=== PATIENT | female | born 1930 | race Caucasian/White ===

== ENCOUNTER 2017-03-10 15:25 | Emergency (ER) | payer OTHER ==
--- NOTE | 2017-03-10 15:34 | PDOC ---
History of Present Illness - General History Source: Patient Exam Limitations: No Limitations - History of Present Illness Initial Comments: 03/10/17 17:02 Patient is a 86 year old female,from [facility], with a significant past medical history of Dementia, pacemaker placement, ASHD, angina, and hypercholesterolemia, anxiety, who presents to the ED s/p fall that occurred 2 hours before ED arrival. Patient reports tripping while at the nursing and landing on her buttocks. She reports the pain is a localized pain that she does not rate but states it is painful to sit. Patient denies hitting her head and loss of consciousness. CATIA DESIGNER staff with staff reports they were not in the room so cannot verify or deny the patient's answers. Denies chest pain, sob. Denies fever, chills. Denies hitting of head, loss of consciousness. Denies any other symptoms. Allergies: None Social history: No smoking. No alcohol. No illicit drugs. Surgical history: none PMD: None <Renny Dugan - Last Filed: 03/10/17 17:02> <Dallas Walden - Last Filed: 03/10/17 18:45> - General Chief Complaint: Injury Stated Complaint: FALL Past History <Renny Dugan - Last Filed: 03/10/17 17:02> - Past Medical History Cardiac Disorders: Yes (PACE MAKER, ASHD, angina) GI Disorders: Yes (ABD HERNIA) Hypercholesterolemia: Yes Psychiatric Problems: Yes (ANXIETY) - Surgical History Cardiac Surgery: Yes (PACE MAKER) - Immunization History Td Vaccination: Yes (05/21) Immunization Up to Date: Yes - Suicide/Smoking/Psychosocial Hx Smoking Status: No Smoking History: Unknown if ever smoked Number of Cigarettes Smoked Daily: 0 Hx Alcohol Use: No Substance Use Type: None <Dallas Walden - Last Filed: 03/10/17 18:45> - Past Medical History Allergies/Adverse Reactions: Allergies Allergy/AdvReac Type Severity Reaction Status Date / Time No Known Allergies Allergy Verified 03/10/17 15:45 Home Medications: Ambulatory Orders Alendronate Na [Fosamax] 70 mg PO Q7D 10/16/11 Atorvastatin Ca [Lipitor (Restricted To Cardiology)] 10 mg PO DAILY 10/16/11 Cholecalciferol (Vitamin D3) [Vitamin D] 2,000 unit PO BID 10/16/11 Diltiazem HCl [Cardizem] 120 mg PO BID 10/16/11 Escitalopram Oxalate [Lexapro] 10 mg PO HS 10/16/11 Levetiracetam [Keppra] 250 mg PO BID 10/16/11 Ranitidine Oral Solution [Zantac] 150 mg PO DAILY 10/16/11 Aspirin [ASA] 81 mg PO DAILY 01/03/12 Docusate Sodium [Colace] 100 mg PO TID 01/03/12 Digoxin [Lanoxin] 125 mcg PO DAILY 11/10/14 Metformin HCl [Glucophage -] 500 mg PO BID 11/10/14 Review of Systems - Review of Systems Able to Perform ROS?: Yes Comments:: 03/10/17 17:02 GENERAL/CONSTITUTIONAL: No fever or chills. No weakness. HEAD, EYES, EARS, NOSE AND THROAT: No change in vision. No ear pain or discharge. No sore throat. CARDIOVASCULAR: No chest pain or shortness of breath. RESPIRATORY: No cough, wheezing, or hemoptysis. GASTROINTESTINAL: No nausea, vomiting, diarrhea or constipation. GENITOURINARY: No dysuria, frequency, or change in urination. MUSCULOSKELETAL: +RIght buttock pain. No joint or muscle swelling or pain. No neck or back pain. SKIN: No rash NEUROLOGIC: No headache, vertigo, loss of consciousness, or change in strength/ sensation. ENDOCRINE: No increased thirst. No abnormal weight change. HEMATOLOGIC/LYMPHATIC: No anemia, easy bleeding, or history of blood clots. ALLERGIC/IMMUNOLOGIC: No hives or skin allergy. All Other Systems: Reviewed and Negative <Renny Dugan - Last Filed: 03/10/17 17:02> *Physical Exam - Vital Signs Last Vital Signs Temp Pulse Resp BP Pulse Ox 98.1 F 61 18 122/71 100 03/10/17 15:32 03/10/17 15:32 03/10/17 15:32 03/10/17 15:32 03/10/17 15:32 - Physical Exam Comments: 03/10/17 17:03 GENERAL: Awake, alert, and fully oriented, in no acute distress HEAD: No signs of trauma EYES: PERRLA, EOMI, sclera anicteric, conjunctiva clear ENT: Auricles normal inspection, hearing grossly normal, nares patent, oropharynx clear without exudates. Moist mucosa NECK: Normal ROM, supple, no lymphadenopathy, JVD, or masses LUNGS: Breath sounds equal, clear to auscultation bilaterally. No wheezes, and no crackles HEART: Regular rate and rhythm, normal S1 and S2, no murmurs, rubs or gallops ABDOMEN: Soft, nontender, normoactive bowel sounds. No guarding, no rebound. No masses BUTTOCK: +Lateral buttock tenderness. EXTREMITIES: Normal range of motion, no edema. No clubbing or cyanosis. No cords, erythema, or tenderness NEUROLOGICAL: Cranial nerves II through XII grossly intact. Normal speech, normal gait SKIN: Warm, Dry, normal turgor, no rashes or lesions noted. <Renny Dugan - Last Filed: 03/10/17 17:02> ED Treatment Course - Medications Given in the ED: ED Medications Discontinued Medications Generic Name Dose Route Start Last Admin Trade Name Freq PRN Reason Stop Dose Admin Acetaminophen 1,000 mg 03/10/17 16:15 03/10/17 16:45 Tylenol - PO 03/10/17 16:16 1,000 mg ONCE ONE Administration <Renny Dugan - Last Filed: 03/10/17 17:02> *DC/Admit/Observation/Transfer - Attestations Scribe Attestion: 03/10/17 17:03 Documentation prepared by Renny Dugan, acting as director of graduate medical education for Dallas Walden MD/DO. <Renny Dugan - Last Filed: 03/10/17 17:02> - Discharge Dispostion Admit: No - Attestations Physician Attestion: 03/10/17 15:34 I, Dr. Dallas Walden, attest that this document has been prepared under my direction and personally reviewed by me in its entirety. I further attest, that it accurately reflects all work, treatment, procedures and medical decision -making performed by me. <Dallas Walden - Last Filed: 03/10/17 18:45> Diagnosis at time of Disposition: Contusion of buttock Qualifiers: Encounter type: initial encounter Qualified Code(s): S30.0XXA - Contusion of lower back and pelvis, initial encounter - Discharge Dispostion Disposition: HOME Condition at time of disposition: Good - Patient Instructions Printed Discharge Instructions: DI for Contusion Additional Instructions: Angely- Sorry this happened to you..... Nothing is broken... You will be sore for a few days... Use tylenol and an Ice Pack Shakeel- Dallas Orantes
--- NOTE | 2017-03-10 15:35 | PDOC ---
History of Present Illness - General Chief Complaint: Injury Stated Complaint: FALL Time Seen by Provider: 03/10/17 15:34 Past History - Past Medical History Allergies/Adverse Reactions: Allergies Allergy/AdvReac Type Severity Reaction Status Date / Time No Known Allergies Allergy Verified 10/16/11 11:53 Home Medications: Ambulatory Orders Alendronate Na [Fosamax] 70 mg PO Q7D 10/16/11 Atorvastatin Ca [Lipitor (Restricted To Cardiology)] 10 mg PO DAILY 10/16/11 Cholecalciferol (Vitamin D3) [Vitamin D] 2,000 unit PO BID 10/16/11 Diltiazem HCl [Cardizem] 120 mg PO BID 10/16/11 Escitalopram Oxalate [Lexapro] 10 mg PO HS 10/16/11 Levetiracetam [Keppra] 250 mg PO BID 10/16/11 Ranitidine Oral Solution [Zantac] 150 mg PO DAILY 10/16/11 Aspirin [ASA] 81 mg PO DAILY 01/03/12 Docusate Sodium [Colace] 100 mg PO TID 01/03/12 Digoxin [Lanoxin] 125 mcg PO DAILY 11/10/14 Metformin HCl [Glucophage -] 500 mg PO BID 11/10/14 Cardiac Disorders: Yes (PACE MAKER, ASHD, angina) GI Disorders: Yes (ABD HERNIA) Hypercholesterolemia: Yes Psychiatric Problems: Yes (ANXIETY) - Surgical History Cardiac Surgery: Yes (PACE MAKER) - Immunization History Td Vaccination: Yes (05/21) Immunization Up to Date: Yes - Suicide/Smoking/Psychosocial Hx Smoking Status: No Smoking History: Unknown if ever smoked Number of Cigarettes Smoked Daily: 0 Hx Alcohol Use: No Substance Use Type: None
[2017-03-10 15:43] VITALS: BP 122/71; PULSE 61; TEMP 98.1; BMI 27.4
[2017-03-10] MEDS ORDERED: ACETAMINOPHEN 500 MG TABLET (FP) PO ONE (16:15)
[2017-03-10] MEDS ORDERED: ACETAMINOPHEN 325 MG TABLET (FP) ONE (16:34)
== END 2017-03-10 19:29 | disposition home or self-care (01) ==
LOC: JER 15:25
DX: S30.0XXA Contusion of lower back and pelvis, initial encounter (principal); W18.39XA Other fall on same level, initial encounter; Y93.89 Activity, other specified; Y92.128 Other place in nursing home as the place of occurrence of the external cause; Y99.8 Other external cause status; I25.119 Atherosclerotic heart disease of native coronary artery with unspecified angina pectoris; I10 Essential (primary) hypertension; Z95.0 Presence of cardiac pacemaker; E78.00 Pure hypercholesterolemia, unspecified; E11.9 Type 2 diabetes mellitus without complications; Z79.84 Long term (current) use of oral hypoglycemic drugs; F41.9 Anxiety disorder, unspecified
CPT/HCPCS: 72170-TC; 99281-25

== ENCOUNTER 2017-07-30 11:31 | Emergency (ER) | payer OTHER ==
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
[2017-07-30 11:55] VITALS: BP 107/52; PULSE 60; TEMP 97.6; BMI 24.0
[2017-07-30] MEDS ORDERED: ACETAMINOPHEN 325 MG TABLET (FP) PO ONE (12:02)
[2017-07-30] MEDS ORDERED: ACETAMINOPHEN 325 MG TABLET (FP) ONE (12:08)
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
== END 2017-07-30 14:00 ==
LOC: JER 11:31
DX: S79.911A Unspecified injury of right hip, initial encounter (principal); W03.XXXA Other fall on same level due to collision with another person, initial encounter; Y93.89 Activity, other specified; Y92.128 Other place in nursing home as the place of occurrence of the external cause; Y99.8 Other external cause status; I25.119 Atherosclerotic heart disease of native coronary artery with unspecified angina pectoris; Z95.0 Presence of cardiac pacemaker; E06.9 Thyroiditis, unspecified; E78.00 Pure hypercholesterolemia, unspecified; F03.90 Unspecified dementia, unspecified severity, without behavioral disturbance, psychotic disturbance, mood disturbance, and anxiety; F41.9 Anxiety disorder, unspecified
CPT/HCPCS: 72100-TC-FY; 73523-TC-FY; 99281-25